=== PATIENT | female | born 1995 ===

== ENCOUNTER 2024-10-15 13:11 | Inpatient (IN) | payer OTHER, SELFPAY ==
[2024-10-15 14:36] VITALS: BP 123/77; PULSE 80; RESP 18; TEMP 36.6; O2SAT 100; BMI 27.3
[2024-10-15] MEDS: Milk of Magnesia 30 ML ORAL.SUSP PO (15:41)
[2024-10-15] MEDS: Acetaminophen 325 MG TABLET 650 MG PO (15:41)
[2024-10-15] MEDS: Flu Vacc TS2024-25(6mos up)/PF 0.5 ML SYRINGE IM (15:50)
--- NOTE | 2024-10-15 17:04 | PC.ADMIT ---
Kamryn was admitted to at 1:15 from [facility] on a CV for recent suicide attempt. She signed a 3-day notice shortly after signing herself in for treatment. Kamryn is primarily Arabic speaking, having immigrated from the [place] approximately 3 years ago. She can speak and understand some Azerbaijani and is able to ask for clarification when needed. She has found the transition to living in the [place] difficult. In 2022 her father , which resulted in depression from which she recovered. She has a history of one other hospitalization at [facility] which she states was due to not sleeping for 4 days and they state was due to ?mild depression.? She gave to her first child about 7 months ago and has experienced significant depression since then. She shows some insight into this, explaining that she did not trust anyone else to care for her baby, but now that she has been hospitalized she sees that the baby has been fine in the care of her family members. She has stable housing with her . She received permission to have her baby visit on the unit and saw both her and baby. After giving she had the nexplanon control implant placed. She was brought to [facility] by her who noticed that she was acting strangely. She told him that she took many prescription pills, primarily SSRIs with a beer in an attempt to end her life. It is unclear how much medication she took in this attempt. Until her OD she had been , but she now states that she does not want to nurse. She may need access to a breastpump to relieve pressure. While at [facility] she was also diagnosed for a UTI which is being treated. Skin check was unremarkable. Tox screen negative. Flu vaccine given. Patient is placed on 15 minute checks for safety.?
--- NOTE | 2024-10-15 17:29 | HO.PM.IMCN ---
History of Present Illness Data of Consult Service Date: 10/15/24 Primary Care Provider: Unknown Physician HPI Reason for consult: Admission H&P Pt is a 29-year-old female with a PMH significant for? who is admitted to psychiatry unit for . Medical consult for admission H&P. ? Labs reviewed, significant for [facility] Social History Household Members: Spouse, Family and Children Housing: House Do you presently have visiting nurse or other home services: No Patient Tobacco Use Status: Never used Tobacco e-Cigarette/Vaping Use: Never Used Second Hand Smoke Exposure: No Use of substances other than those prescribed or required for medical reasons: No Currently Displaying Signs/Symptoms of Drug Intoxication Withdrawal: No Any prior treatment program specific to substance use: No Have you been hit, kicked, punched, or otherwise hurt by someone within the past year? If so, by whom?: No Do you feel safe in your current relationship?: Yes Is there a partner from a previous relationship who is making you feel unsafe now?: No Are you made to feel afraid or neglected: No Advance Directives: No Advance Directives Information Provided: Yes Do you have a plan to hurt others: No Plan Recently lost weight without trying: No Eating poorly because of decreased appetite: No Patient : No : Yes Poor oral hygiene: No Meds Allergies Allergy/AdvReac Type Severity Reaction Status Date / Time No Known Allergies Allergy Verified 10/15/24 13:39 Active Medications: Current Medications Acetaminophen (Acetaminophen 325 Mg Tablet) 650 mg PO Q6H PRN PRN Reason: Headache/Pain Mild Scale (1-3) Last Admin: 10/15/24 15:41 Dose: 650 mg Al Hydroxide/Mg Hydroxide (Magnesium Hydrox/Alum Hydrox 30 Ml Oral.Susp) 30 ml PO Q6H PRN PRN Reason: Heartburn/Nausea Cefuroxime Axetil (Cefuroxime Axetil 250 Mg Tablet) 250 mg PO BID MOLLY Stop: 10/22/24 09:01 Hydroxyzine HCl (Hydroxyzine Hcl 25 Mg Tablet) 25 mg PO Q6H PRN PRN Reason: Anxiety Magnesium Hydroxide (Milk Of Magnesia 30 Ml Oral.Susp) 30 ml PO DAILY PRN PRN Reason: Constipation Last Admin: 10/15/24 15:41 Dose: 30 ml Nicotine (Nicotine 21 Mg Patch.Td24) 21 mg TRANSDERMA DAILY PRN PRN Reason: smoking cessation Nicotine Polacrilex (Nicotine Polacrilex 2 Mg Gum) 4 mg BUCCAL Q2H PRN PRN Reason: Nicotine Cravings Trazodone HCl (Trazodone Hcl 50 Mg Tablet) 50 mg PO BEDTIME MRX1 PRN PRN Reason: Insomnia Home Medications ?Medication ?Instructions ?Recorded ?Confirmed ?Last Taken ?Type citalopram 10 mg tablet 10 mg PO 10/15/24 Unknown History Physical Exam Vital Signs and Narrative: Vital Signs: Last Vital Signs Temp 98 F 10/15/24 14:36 Pulse 80 10/15/24 14:36 Resp 18 10/15/24 14:36 BP 123/77 10/15/24 14:36 Pulse Ox 100 10/15/24 14:36 O2 Del Method Room Air 10/15/24 14:36 BMI result Body Mass Index 27.3
--- NOTE | 2024-10-15 18:45 | PM.EVENT ---
Event Note Date of Service: 10/15/24 Event Note: Patient is a 29-year-old female with PMH significant for depression who was admitted to [facility] unit. Hospitalist consult for admission H&P. Attempted to see patient on the unit, but she was unavailable to meet. Quick review of patient's medication claim history reveals she is only on prescription medication for depression. Will attempt to see patient at a later date. In the meantime, please reach out if any acute issue need arises. Time Spent With Patient Time: Total time managing care of this patient today ____ minutes.
[2024-10-15 20:00] VITALS: BP 115/65; PULSE 77; TEMP 36.4; O2SAT 99
--- NOTE | 2024-10-15 20:23 | HO.PM.IMCN ---
History of Present Illness Data of Consult Service Date: 10/15/24 Primary Care Provider: Unknown Physician HPI Reason for consult: Admission H&P Pt is a 29-year-old female with a PMH significant for?anxiety/depression who is admitted to [facility] psychiatry unit. Medical consult for admission H&P. ?Patient's primary complaint is of constipation. States has not had a bowel movement for at least 5 days. Also complains of mild lower abdominal pain. Otherwise, no acute medical complaints. Denies chest pain/pressure, palpitations. No nausea, vomiting, fever, chills denies shortness a breath or difficulty breathing. Patient reports used to be on 1 medication for depression, but has stopped that since she is breast-feeding her child. Review of Systems Review of Systems: Constipation with last bowel movement 5 days ago Otherwise patient has no acute medical complaints PMFSH Social History Household Members: Spouse, Family and Children Housing: House Do you presently have visiting nurse or other home services: No Patient Tobacco Use Status: Never used Tobacco e-Cigarette/Vaping Use: Never Used Second Hand Smoke Exposure: No Use of substances other than those prescribed or required for medical reasons: No Currently Displaying Signs/Symptoms of Drug Intoxication Withdrawal: No Any prior treatment program specific to substance use: No Have you been hit, kicked, punched, or otherwise hurt by someone within the past year? If so, by whom?: No Do you feel safe in your current relationship?: Yes Is there a partner from a previous relationship who is making you feel unsafe now?: No Are you made to feel afraid or neglected: No Advance Directives: No Advance Directives Information Provided: Yes Do you have a plan to hurt others: No Plan Recently lost weight without trying: No Eating poorly because of decreased appetite: No Patient : No : Yes Poor oral hygiene: No Meds Allergies Allergy/AdvReac Type Severity Reaction Status Date / Time No Known Allergies Allergy Verified 10/15/24 13:39 Active Medications: Current Medications Acetaminophen (Acetaminophen 325 Mg Tablet) 650 mg PO Q6H PRN PRN Reason: Headache/Pain Mild Scale (1-3) Last Admin: 10/15/24 15:41 Dose: 650 mg Al Hydroxide/Mg Hydroxide (Magnesium Hydrox/Alum Hydrox 30 Ml Oral.Susp) 30 ml PO Q6H PRN PRN Reason: Heartburn/Nausea Cefuroxime Axetil (Cefuroxime Axetil 250 Mg Tablet) 250 mg PO BID MOLLY Stop: 10/22/24 09:01 Hydroxyzine HCl (Hydroxyzine Hcl 25 Mg Tablet) 25 mg PO Q6H PRN PRN Reason: Anxiety Magnesium Hydroxide (Milk Of Magnesia 30 Ml Oral.Susp) 30 ml PO DAILY PRN PRN Reason: Constipation Last Admin: 10/15/24 15:41 Dose: 30 ml Nicotine (Nicotine 21 Mg Patch.Td24) 21 mg TRANSDERMA DAILY PRN PRN Reason: smoking cessation Nicotine Polacrilex (Nicotine Polacrilex 2 Mg Gum) 4 mg BUCCAL Q2H PRN PRN Reason: Nicotine Cravings Trazodone HCl (Trazodone Hcl 50 Mg Tablet) 50 mg PO BEDTIME MRX1 PRN PRN Reason: Insomnia Home Medications ?Medication ?Instructions ?Recorded ?Confirmed ?Last Taken ?Type citalopram 10 mg tablet 10 mg PO 10/15/24 Unknown History Physical Exam Vital Signs and Narrative: Vital Signs: Last Vital Signs Temp 97.5 F 10/15/24 20:00 Pulse 77 10/15/24 20:00 Resp 18 10/15/24 14:36 BP 115/65 10/15/24 20:00 Pulse Ox 99 10/15/24 20:00 O2 Del Method Room Air 10/15/24 20:00 BMI result Body Mass Index 27.3 General: AOx3, no acute distress Resp: CTA bilaterally CVS: S1, S2, RRR GI: +BS, no distention, mild lower abdominal tenderness Skin: Warm, dry Neuro: Cranial nerves II-XII grossly intact bilaterally. Motor grossly intact bilaterally Extremities: No edema Assessment and Plan (1) Medical clearance for psychiatric admission: Status: Acute Plan Pt is a 29-year-old female with a PMH significant for?anxiety/depression who is admitted to [facility] psychiatry unit. Medical consult for admission H&P. Mood disorder Plan as per Psychiatry Constipation Patient reports last bowel movement 5 days ago Mild lower abdominal tenderness Bowel regimen as per Psychiatry Patient otherwise has no acute medical complaints or chronic medical conditions. Will sign off for now. Thank you for allowing us to participate in the care of this patient. Please read consult if any acute issue or need arises.
[2024-10-15] MEDS: traZODone HCL 50 MG TABLET PO (21:01)
[2024-10-15] MEDS: cefuroxime axetiL 250 MG TABLET PO (21:01)
[2024-10-16 08:00] VITALS: BP 102/63; PULSE 65; RESP 16; TEMP 36.3; O2SAT 99
[2024-10-16] MEDS: cefuroxime axetiL 250 MG TABLET PO ×2 (08:42→22:00)
[2024-10-16] MEDS: Acetaminophen 325 MG TABLET 650 MG PO ×2 (08:43→22:08)
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
[2024-10-16 08:58] LABS: Estimated Average Glucose 97 mg/dL; Hemoglobin A1C 103.1583 umol/L
[2024-10-16 09:29] LABS: Alanine Aminotransferase 17 U/L (0-31); Albumin Level 4.5 g/dL (3.5-5.0); Anion Gap 16 (12-20); Aspartate Amino Transferase 18 U/L (5-31); Bilirubin Total 0.8 mg/dL (0.0-1.0); Blood Urea Nitrogen 12 mg/dL (9-16); Calcium 9.7 mg/dL (8.4-10.2); Carbon Dioxide 26 mmol/L (22-29); Chloride 99 mmol/L (96-108); Cholesterol 160 mg/dL (<200); Creatinine Clr Calc Pharmacy 93.2; Estimated Glomerular Filt Rate > 60; Glucose Fasting 90 mg/dL (60-99); HDL Cholesterol 57 mg/dL (>40); LDL Cholesterol Calculated 85 mg/dL (<100); Potassium 3.6 mmol/L (3.3-5.1); Sodium 137 mmol/L (135-145); Total Protein 8.1 g/dL (6.5-8.0); Triglycerides 94 mg/dL (<150)
[2024-10-16] MEDS: polyethylene glycoL 3350 17 GM POWD.PACK PO ×2 (09:38→22:00)
[2024-10-16 10:06] LABS: TSH reflex Free T4 1.22 uIU/mL (0.32-4.0)
--- NOTE | 2024-10-16 11:30 | PHA.MEDREC ---
Pharmacy Consult ? Medication Reconciliation Pharmacy has completed the medication reconciliation.MICHELLE STEWART CONFIRMED WITH PATIENT THAT SHE TOOK CELEXA, SERTRALINE, AND PAXIL FOR VERY SHORT TERM TREATMENT IN RECENT HISTORY BUT IS CURRENTLY TAKING NO HOME MEDICATIONS.
[2024-10-16 11:47] LABS: Alkaline Phosphatase 97 U/L (39-117)
[2024-10-16 13:45] LABS: UPreg QC Valid YES; Urine Pregnancy NEGATIVE (NEGATIVE)
[2024-10-16 20:00] VITALS: RESP 16
[2024-10-16] MEDS: traZODone HCL 50 MG TABLET PO (22:00)
[2024-10-17 08:00] VITALS: BP 92/55; PULSE 66; RESP 16; TEMP 36.4; O2SAT 99
[2024-10-17] MEDS: DAILY FIBER 2 EACH PO (08:44)
[2024-10-17] MEDS: cefuroxime axetiL 250 MG TABLET PO ×2 (08:45→21:54)
[2024-10-17] MEDS: Acetaminophen 325 MG TABLET 650 MG PO (11:06)
[2024-10-17] MEDS: buPROPion HCl XL 150 MG TAB.ER.24H PO (11:07)
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
[2024-10-17] MEDS: Milk of Magnesia 30 ML ORAL.SUSP PO (14:44)
[2024-10-17] MEDS: Ibuprofen 600 MG TABLET PO ×2 (14:44→21:54)
--- NOTE | 2024-10-17 15:05 | PC.NURSE ---
PT SIGNED A 3 DAY ON 10/17 THAT WILL BE UP[ ON 10/23
[2024-10-17 15:17] LABS: Appearance Urine Clear; Color Urine Yellow; Glucose Urine UA Negative (Negative); Leukocyte Esterase Urine Negative (Negative); Nitrite Urine Negative (Negative); PH 6.5 (5.0-9.0); Specific Gravity - Urine 1.025 (1.005-1.025); UMIC TRIGGER UACC YES; Urine Blood Small (1+) (Negative); Urine Ketones Negative (Negative); Urine Protein Negative (Neg-Trace)
[2024-10-17 15:41] LABS: Bacteria Urine None Seen (None Seen); Hyaline Casts Urine 0-2 /LPF (0-2); WBC Urine 0-5 /HPF (0-5)
[2024-10-17 20:00] VITALS: BP 110/60; PULSE 63; RESP 18; TEMP 36.5; O2SAT 98
[2024-10-17] MEDS: traZODone HCL 50 MG TABLET PO (21:55)
[2024-10-18 08:32] VITALS: BP 111/58; PULSE 66; RESP 18; TEMP 36.6; O2SAT 98
[2024-10-18] MEDS: cefuroxime axetiL 250 MG TABLET PO ×2 (08:57→20:49)
[2024-10-18] MEDS: buPROPion HCl XL 300 MG TAB.ER.24H PO (08:59)
[2024-10-18] MEDS: DAILY FIBER 2 EACH PO (08:59)
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
[2024-10-18 20:00] VITALS: BP 110/62; PULSE 65; RESP 16; TEMP 36.4; O2SAT 98
[2024-10-18] MEDS: traZODone HCL 50 MG TABLET PO (22:22)
[2024-10-19 08:00] VITALS: BP 113/61; PULSE 72; RESP 16; TEMP 36.3; O2SAT 98
[2024-10-19] MEDS: buPROPion HCl XL 300 MG TAB.ER.24H PO (08:30)
[2024-10-19] MEDS: cefuroxime axetiL 250 MG TABLET PO ×2 (08:30→22:37)
[2024-10-19] MEDS: DAILY FIBER 2 EACH PO (08:30)
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
[2024-10-19 20:00] VITALS: BP 119/56; PULSE 70; RESP 16; TEMP 36.7; O2SAT 93
[2024-10-19] MEDS: traZODone HCL 50 MG TABLET PO (22:37)
[2024-10-20] MEDS: buPROPion HCl XL 300 MG TAB.ER.24H PO (09:01)
[2024-10-20] MEDS: cefuroxime axetiL 250 MG TABLET PO ×2 (09:01→21:03)
[2024-10-20] MEDS: DAILY FIBER 2 EACH PO (09:01)
[2024-10-20 09:11] VITALS: BP 101/54; PULSE 69; RESP 16; TEMP 36.3; O2SAT 98
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
[2024-10-20 20:00] VITALS: BP 105/53; PULSE 77; RESP 16; TEMP 36.4; O2SAT 95
[2024-10-20] MEDS: traZODone HCL 50 MG TABLET PO ×2 (21:03→22:38)
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
[2024-10-21] MEDS: DAILY FIBER 2 EACH PO (09:30)
[2024-10-21] MEDS: cefuroxime axetiL 250 MG TABLET PO ×2 (09:30→21:13)
[2024-10-21] MEDS: buPROPion HCl XL 300 MG TAB.ER.24H PO (09:30)
[2024-10-21 09:45] VITALS: BP 104/58; PULSE 84; RESP 18
[2024-10-21 20:00] VITALS: BP 120/69; PULSE 89; O2SAT 98
[2024-10-21] MEDS: polyethylene glycoL 3350 17 GM POWD.PACK PO (21:20)
[2024-10-21] MEDS: traZODone HCL 50 MG TABLET PO (21:48)
[2024-10-22 08:21] VITALS: BP 95/52; PULSE 68; TEMP 36.3; O2SAT 99
[2024-10-22] MEDS: cefuroxime axetiL 250 MG TABLET PO (09:24)
[2024-10-22] MEDS: buPROPion HCl XL 300 MG TAB.ER.24H PO (09:24)
[2024-10-22] MEDS: DAILY FIBER 2 EACH PO (09:24)
[2024-10-22 20:00] VITALS: BP 108/66; PULSE 71; TEMP 36.4; O2SAT 99
[2024-10-22] MEDS: traZODone HCL 50 MG TABLET PO ×2 (21:54→23:47)
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
--- NOTE | 2024-10-23 00:47 | PM.PSYDC ---
DS: Providers Provider Date of Service: 10/23/24 Date of admission: 10/15/24 13:11 Date of discharge: 10/23/24 Primary care physician: Unknown Physician Consults: 10/15/24 13:39 Consult to Hospitalist Routine Comment: Consulting Provider: [facility] [place] Hospitalists Reason For Exam: admission physical DS: Diagnosis Discharge Diagnosis (1) MDD (major depressive disorder), recurrent severe, without psychosis: Status: Acute (2) PTSD (post-traumatic stress disorder): Status: Acute DS: Medications Discharge Medications Home Medications: Previous Rx's ?Medication ?Instructions ?Recorded bupropion HCl 300 mg 24 hr tablet, 300 mg PO DAILY 30 days #30 tabs 10/23/24 extended release polyethylene glycol 3350 17 gram 17 g PO DAILY PRN Constipation 30 10/23/24 oral powder packet days #30 ea psyllium husk 0.4 gram capsule 2 g (5 x 0.4 gram) PO DAILY 30 10/23/24 days #150 caps trazodone 50 mg tablet 50 mg PO BEDTIME PRN Insomnia 50 10/23/24 days #30 tabs Data Data Completed and Pending Completed studies during hospitalization [Text1]: 10/16/24 10/16/24 10/17/24 08:17 13:20 14:56 Sodium 137 Potassium 3.6 Chloride 99 Carbon Dioxide 26 Anion Gap 16 BUN 12 Creatinine 0.85 Estim Creat Clear Calc 93.2 Estimated GFR > 60 Fasting Glucose 90 Estimat Average Glucose 97 Hemoglobin A1c % 5.0 Calcium 9.7 Total Bilirubin 0.8 AST 18 ALT 17 Alkaline Phosphatase 97 Total Protein 8.1 H Albumin 4.5 Triglycerides 94 Cholesterol 160 LDL Cholesterol, Calc 85 HDL Cholesterol 57 TSH 1.22 Urine Color Yellow Urine Appearance Clear Urine pH 6.5 Ur Specific [place] 1.025 Urine Protein Negative Urine Glucose (UA) Negative Urine Ketones Negative Urine Blood Small (1+) H Urine Nitrite Negative Ur Leukocyte Esterase Negative Urine RBC 6-10 H Urine WBC 0-5 Ur Squamous Epith Cells 6-10 Urine Bacteria None Seen Hyaline Casts 0-2 Urine Test NEGATIVE DS: Summary Time Spent with Patient Time attestation: Total time managing care of this patient today ____ minutes. Discharge Plan Discharge Anticipated Discharge Date/Time: 10/23/24 11:00 Patient Disposition: Home, Self-Care Discharge Diagnosis: MDD, recurrent, severe w/out psychosis in partial remission Referrals: [facility]: Gabrielle Smith (therapy) [Other] - 10/25/24 10:00 am (Initial diagnostic appointment for therapy services Appointment in person at [facility] in [place], [place]) Deepthi Vuong (psychiatry): [facility] [Other] - 11/19/24 2:00 pm (Initial appointment for psychiatric medication management. evaluation by psychiatric medication provider. Appointment is by tele-health ) Deepthi Vuong (psychiatry): [facility] [Other] - 12/18/24 9:00 am (Medication Management appointment Appointment is by tele-health.) Physician,Unknown J [Primary Care Provider] - 1 Week Discharge Medications: New bupropion HCl 300 mg Tablet Extended Release 24 Hr 300 mg PO DAILY 30 Days Qty: 30 1RF trazodone 50 mg Tablet 50 mg PO BEDTIME PRN (Reason: Insomnia) 50 Days Qty: 30 1RF polyethylene glycol 3350 17 gram Powder In Packet 17 g PO DAILY PRN (Reason: Constipation) 30 Days Qty: 30 1RF Continued psyllium husk 0.4 gram Capsule 2 g PO DAILY 30 Days Qty: 150 1RF Discharge Orders: Discharge Order (Routine); Ordered 10/23/24 Ordered By: Jayro Lee Diet: Regular diet Activity on Discharge: As tolerated Stand Alone Forms: Patient Portal Discharge page Print Language: Mongolian Care Plan Goals: Maintain mood and safe behaviors Take medications as prescribed Practice coping skills Continue with outpatient providers and reach out to them as needed Health Concerns: Mood stability and behaviors Plan of Treatment: Follow up with your PCP, psychiatric provider and other outpatient providers regarding above concerns Take medications as prescribed Assessment: Risk assessment at time of discharge:? Patient was interviewed prior to discharge and found to be fully oriented and without any SI or HI. Patient has improved insight and judgment and wants to continue treatment. Patient is not in imminent risk of harm to self or others and has a safety plan that includes presenting to the closest ER or calling 911 if feeling unsafe.? Patient has been observed closely by nursing and unit staff throughout admission; patient has not engaged in any behaviors that suggest dangerousness to self or others and has demonstrated appropriate behaviors and impulse control
[2024-10-23 08:00] VITALS: BP 110/60; PULSE 81; RESP 18; TEMP 36.8; O2SAT 96
[2024-10-23] MEDS: buPROPion HCl XL 300 MG TAB.ER.24H PO (08:24)
[2024-10-23] MEDS: DAILY FIBER 2 EACH PO (08:25)
== END 2024-10-23 11:42 | disposition home or self-care (01) | DRG 751 ==
PROVIDERS: Admitting Provider Psychiatry & Neurology Psychiatry; Visit Provider Psychiatry & Neurology Psychiatry
DX: F33.2 Major depressive disorder, recurrent severe without psychotic features (principal); K59.00 Constipation, unspecified; Z23 Encounter for immunization; Z79.899 Other long term (current) drug therapy
CPT/HCPCS: 36415; 80053; 80061; 81001; 81025; 83036; 84443; 90656

== ENCOUNTER → 2024-10-15 13:11 | Outpatient (BNV) | payer OTHER, SELFPAY | PROVIDERS: Admitting Provider Psychiatry & Neurology Psychiatry; Visit Provider Psychiatry & Neurology Psychiatry | DX: F33.2 Major depressive disorder, recurrent severe without psychotic features (principal); F43.11 Post-traumatic stress disorder, acute | CPT/HCPCS: 90792; 99231; 99232 ==

== ENCOUNTER → 2024-10-15 13:11 | Outpatient (BNV) | payer OTHER, SELFPAY | PROVIDERS: Admitting Provider Psychiatry & Neurology Psychiatry; Visit Provider Student in an Organized Health Care Education/Training Program | DX: Z02.2 Encounter for examination for admission to residential institution (principal) | CPT/HCPCS: 99429; 99499 ==